=== PATIENT | male | born 1955 | race Caucasian/White ===

== ENCOUNTER 2018-01-06 08:19 | Emergency (ER) | payer OTHER ==
[2018-01-06 08:34] VITALS: BP 147/78
[2018-01-06] MEDS ORDERED: Tetan/Diph/Pertus SYR(Tdap)* 0.5 ML SYR(BOOSTRIX) use SYR IM ONE (08:51)
--- NOTE | 2018-01-06 08:51 | UC ---
Laceration HPI - HPI Summary HPI Summary: 62 yo gentleman presents with L middle finger (ulnar) avulsion lac. 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 Bleeding controlled with pressure, not actively bleeding at examination. No p/d/w. Last tet booster many years ago, date unk. Reports general condition as healthy. - History Of Current Complaint Chief Complaint: UCLaceration Stated Complaint: FINGER LAC Hx Obtained From: Patient Pain Intensity: 3 - Allergies/Home Medications Allergies/Adverse Reactions: Allergies Allergy/AdvReac Type Severity Reaction Status Date / Time No Known Allergies Allergy Verified 01/06/18 08:34 Home Medications: Home Medications Chlorhexidine MOUTHWASH 0.12%* [Peridex Mouth Wash 0.12%*] 473 ml .SEE ORDER BID 01/06/18 [History Confirmed 01/06/18] PMH/Surg Hx/FS Hx/Imm Hx Previously Healthy: Yes - Surgical History Surgical History: Yes Surgery Procedure, Year, and Place: TONSILLECTOMY, PARTIAL RIGHT LUNG REMOVED, SALIVARY GLAND REMOVED, ORAL SURGERIES. carpal tunnel - Family History Known Family History: Negative: Respiratory Disease - Social History Alcohol Use: Rare Substance Use Type: Marijuana Substance Use Comment - Amount & Last Used: rarely Smoking Status (MU): Former Smoker When Did the Patient Quit Smoking/Using Tobacco: 20 yrs - Immunization History Most Recent Tetanus Shot: unknown Review of Systems Constitutional: Negative Skin: Other - see hpi Eyes: Negative ENT: Negative Respiratory: Negative Cardiovascular: Negative Gastrointestinal: Negative Genitourinary: Negative Motor: Negative, Other - see hpi Neurovascular: Negative Musculoskeletal: Negative Neurological: Negative Psychological: Negative Is Patient Immunocompromised?: No All Other Systems Reviewed And Are Negative: Yes Physical Exam Triage Information Reviewed: Yes Appearance: Well-Appearing, Well-Nourished Vital Signs: Initial Vital Signs Temp 98.5 F 01/06/18 08:28 Pulse 81 01/06/18 08:28 Resp 16 01/06/18 08:28 BP 147/78 01/06/18 08:28 Pulse Ox 97 01/06/18 08:28 Vital Signs Reviewed: Yes Eye Exam: Normal ENT Exam: Normal Neck exam: Normal Respiratory Exam: Normal Cardiovascular Exam: Normal Abdominal Exam: Normal Musculoskeletal Exam: Normal - see "skin" re finger lac 3rd digit LH Neurological Exam: Normal - grossly nonfocal. Distal sens present LT Psychological Exam: Normal - conversing easily and appropropriately Skin Exam: Other - Left distal 3rd digit avulsion lac appro 2cm x 1.2cm. + full thickness. A little dusky at convergence, d/w pt. Laceration Repair - Laceration Repair 1 Description: Irregular - avulsion full thickness Laceration Size After Repair: Length (cm) - 2cm, Width (mm) - 1.2cm, Depth (mm) - 3 Modified For Repair: No Type Injection: Digital Anesthesia Used: 2.0% Lido Cleansing Completed Via Routine Prep: Yes Irrigation With Pressure Irrigation Device: No Closure Material: Sutures - six single interrupted Closure Method: Single Layer Suture Of: SQ Suture Type: Prolene Laceration Course/Dx - Course/Dx Course Of Treatment: Reviewed f/u and wound care. Questions as posed answered to the best of my ability. - Differential Dx - Laceration/Wound Provider Diagnoses: Left distal 3rd finger avulsion laceration Discharge - Sign-Out/Discharge Documenting (check all that apply): Patient Departure All imaging exams completed and their final reports reviewed: No Studies - Discharge Plan Condition: Stable Disposition: HOME Prescriptions: Cephalexin CAP* [Keflex 500 CAP*] 500 mg PO TID #15 cap Patient Education Materials: Diphtheria/Acellular Pertussis/Tetanus Booster Vaccine (By injection), Finger Laceration (ED) Forms: *Work Release Referrals: Mauricio Perera MD [Primary Care Provider] - Additional Instructions: Recheck 2 days wound check. Ok to change dressing once daily. Twice if soiled / soaked. Avoid prolonged downward position. Ok to shower tomorrow, mild white soap / water. Do no soak in standing water. Thin layer antibiotic (polysporin) ointment, guaze. Not water tight, not air tight. Suture removal approx 10 days. Seek medical attention for any problems. Eat yogurt and / or probiotic every day while taking antibiotic. - Billing Disposition and Condition Condition: STABLE Disposition: Home
[2018-01-06] MEDS ORDERED: Lidocaine 2% PF * 5 ML VIAL IV ONE (09:31)
== END 2018-01-06 10:43 | disposition home or self-care (01) ==
LOC: UCEAST 08:19
DX: S61.213A Laceration without foreign body of left middle finger without damage to nail, initial encounter (principal); W26.8XXA Contact with other sharp object(s), not elsewhere classified, initial encounter; Y92.9 Unspecified place or not applicable; Z23 Encounter for immunization; Z87.891 Personal history of nicotine dependence
CPT/HCPCS: 12001; 12031; 12041; 90471; 90715; 99212; G0463

== ENCOUNTER 2018-01-16 15:11 | Emergency (ER) | payer OTHER ==
[2018-01-16 15:45] VITALS: BP 143/81
--- NOTE | 2018-01-16 17:04 | UC ---
Laceration HPI - HPI Summary HPI Summary: 62 YO MALE Patient here for suture removal from a laceration of the current 10 days ago on the left middle finger. Overall it's healing well. He finished his prophylactic antibiotics and has been using topical antibiotic ointment. No complaint of any numbness or weakness OR drainage. - History Of Current Complaint Chief Complaint: UCSkin Stated Complaint: SUTURE REMOVAL Time Seen by Provider: 01/16/18 16:53 Pain Intensity: 0 - Allergies/Home Medications Allergies/Adverse Reactions: Allergies Allergy/AdvReac Type Severity Reaction Status Date / Time No Known Allergies Allergy Verified 01/16/18 15:45 PMH/Surg Hx/FS Hx/Imm Hx Endocrine History: Hypothyroidism - Surgical History Surgical History: Yes Surgery Procedure, Year, and Place: TONSILLECTOMY, PARTIAL RIGHT LUNG REMOVED, SALIVARY GLAND REMOVED, ORAL SURGERIES. carpal tunnel - Family History Known Family History: Negative: Respiratory Disease - Social History Alcohol Use: Rare Substance Use Type: Marijuana Substance Use Comment - Amount & Last Used: rarely Smoking Status (MU): Former Smoker When Did the Patient Quit Smoking/Using Tobacco: 20 yrs - Immunization History Most Recent Tetanus Shot: unknown Review of Systems Constitutional: Negative Skin: Other - SEE HPI Eyes: Negative ENT: Negative Respiratory: Negative Cardiovascular: Negative Gastrointestinal: Negative Motor: Negative Neurovascular: Negative Musculoskeletal: Other: - SEE HPI Neurological: Negative Psychological: Negative Is Patient Immunocompromised?: No All Other Systems Reviewed And Are Negative: Yes Physical Exam Triage Information Reviewed: Yes Appearance: Well-Appearing, No Pain Distress, Well-Nourished Vital Signs: Initial Vital Signs Temp 98.6 F 01/16/18 15:40 Pulse 101 01/16/18 15:40 Resp 18 01/16/18 15:40 BP 143/81 01/16/18 15:40 Pulse Ox 98 01/16/18 15:40 Vital Signs Reviewed: Yes Eye Exam: Normal Eyes: Positive: Conjunctiva Clear Respiratory: Positive: No respiratory distress Musculoskeletal Exam: Normal Musculoskeletal: Positive: Strength Intact, ROM Intact Neurological Exam: Normal Neurological: Positive: Alert, Muscle Tone Normal Psychological Exam: Normal Psychological: Positive: Age Appropriate Behavior Skin: Positive: Other - Left middle finger has a healing U-shaped flap laceration on the ulnar aspect with 6 individual sutures. There is minimal erythema no drainage no streaking full range of motion no sensation deficit normal capillary refill. Laceration Course/Dx - Course/Dx Course Of Treatment: I removed 6 sutures from the left index finger. - Differential Dx - Laceration/Wound Provider Diagnoses: SUTURE REMOVAL LEFT INDEX FINGER Discharge - Sign-Out/Discharge Documenting (check all that apply): Patient Departure All imaging exams completed and their final reports reviewed: No Studies - Discharge Plan Condition: Stable Disposition: HOME Patient Education Materials: Stitches Removal (ED) Referrals: Mauricio Perera MD [Primary Care Provider] - Additional Instructions: FOLLOW UP WITH YOUR DOCTOR IF NOT COMPLETELY IMPROVED. GET RECHECKED FOR ANY WORSENING OF YOUR CONDITION OR QUESTIONS OR CONCERNS. - Billing Disposition and Condition Condition: STABLE Disposition: Home
== END 2018-01-16 17:12 | disposition home or self-care (01) ==
LOC: UCEAST 15:11
DX: S61.213D Laceration without foreign body of left middle finger without damage to nail, subsequent encounter (principal); Z87.891 Personal history of nicotine dependence; X58.XXXD Exposure to other specified factors, subsequent encounter

== ENCOUNTER 2018-09-14 14:04 | Emergency (ER) | payer OTHER ==
[2018-09-14 14:25] VITALS: BP 137/88
--- NOTE | 2018-09-14 14:51 | UC ---
Skin Complaint HPI - HPI Summary HPI Summary: 62 yo male presents with right leg rash and swelling since yesterday. He tells me that he wears compression stockings and last night he noticed redness to his right calf. Today the redness has spread to his entire right lower leg and he has developed swelling. He has no pain. Has not taken anything OTC for his symptoms. Has not elevated or iced. He denies fever, chills, recent travel, SOB , chest pain, or hx of blood clots. - History of Current Complaint Chief Complaint: UCLowerExtremity Time Seen by Provider: 09/14/18 14:51 Stated Complaint: RASH ON LEG Hx Obtained From: Patient Onset/Duration: Sudden Onset Current Severity: None Pain Intensity: 0 - Allergy/Home Medications Allergies/Adverse Reactions: Allergies Allergy/AdvReac Type Severity Reaction Status Date / Time No Known Allergies Allergy Verified 09/14/18 14:25 PMH/Surg Hx/FS Hx/Imm Hx Endocrine History: Hypothyroidism Respiratory History: Asthma - Surgical History Surgical History: Yes Surgery Procedure, Year, and Place: TONSILLECTOMY, PARTIAL RIGHT LUNG REMOVED, SALIVARY GLAND REMOVED, ORAL SURGERIES. carpal tunnel - Family History Known Family History: Positive: None Negative: Respiratory Disease - Social History Lives: With Family Alcohol Use: Rare Substance Use Type: Marijuana Substance Use Comment - Amount & Last Used: rarely Smoking Status (MU): Former Smoker When Did the Patient Quit Smoking/Using Tobacco: 20 yrs - Immunization History Most Recent Tetanus Shot: unknown Review of Systems All Other Systems Reviewed And Are Negative: Yes Constitutional: Positive: Negative Skin: Positive: Other - redness and swelling RLE Respiratory: Positive: Negative Cardiovascular: Positive: Negative Musculoskeletal: Positive: Negative Neurological: Positive: Negative Psychological: Positive: Negative Physical Exam - Summary Physical Exam Summary: GENERAL: NAD. WDWN. No pain distress. SKIN: RIGHT LOWER EXTREMITY: Mild erythema, warmth, and edema from the posterior proximal calf to the ankle. Scattered varicose veins. NTTP. No streaking, bleeding, or drainage. NECK: Supple. Nontender. No lymphadenopathy. CHEST: No accessory muscle use. Breathing comfortably and in no distress. CV: Pulses intact popliteal, PT, and DP. Cap refill <2seconds MSK: FROM at right knee and ankle without pain or difficulty. Negative homans. NEURO: Alert. PSYCH: Age appropriate behavior. Triage Information Reviewed: Yes Vital Signs: Initial Vital Signs Temp 99.8 F 09/14/18 14:22 Pulse 96 09/14/18 14:22 Resp 16 09/14/18 14:22 BP 137/88 09/14/18 14:22 Pulse Ox 98 09/14/18 14:22 Vital Signs Reviewed: Yes Course/Dx - Course Course Of Treatment: Given his varicose veins and onset of symptoms - suspect DVT vs cellulitis. US: IMPRESSION: NO RIGHT LOWER EXTREMITY DEEP VEIN THROMBOSIS Will treat as cellulitis with keflex. Advised to elevate his leg and to not use the compression stockings for 2-3 days until this has improved. Advised to f/u with PCP on Tuesday for a recheck or sooner if symptoms worsen. - Diagnoses Provider Diagnosis: Cellulitis of right leg Discharge - Sign-Out/Discharge Documenting (check all that apply): Patient Departure All imaging exams completed and their final reports reviewed: Yes - Discharge Plan Condition: Stable Disposition: HOME Prescriptions: Cephalexin CAP* [Keflex CAP*] 500 mg PO TID #21 cap Patient Education Materials: Cellulitis (ED) Referrals: Mauricio Perera MD [Primary Care Provider] - 1 Week Additional Instructions: If you develop a fever, shortness of breath, chest pain, new or worsening symptoms - please call your PCP or go to the ED immediately. Your blood pressure was high at todays visit. Please see your primary provider within 4 weeks for recheck and re-evaluation. 1) I recommend that you follow up with your primary doctor on Tuesday for a recheck of your leg to make sure that it is healing well - Billing Disposition and Condition Condition: STABLE Disposition: Home
[2018-09-14 20:10] LABS: HIV 4th Generation Negative (Negative)
[2018-09-14 20:16] LABS: Hepatitis C Antibody Negative (Negative)
--- NOTE | 2018-09-15 07:14 | UC ---
- Progress Note Progress Note: neg hiv, neg hep c antibody no change jayesh 09/15 Course/Dx - Diagnoses Provider Diagnoses: Cellulitis of right leg Discharge - Sign-Out/Discharge Documenting (check all that apply): Post-Discharge Follow Up All imaging exams completed and their final reports reviewed: Yes - Discharge Plan Condition: Stable Disposition: HOME Prescriptions: Cephalexin CAP* [Keflex CAP*] 500 mg PO TID #21 cap Patient Education Materials: Cellulitis (ED) Referrals: Mauricio Perera MD [Primary Care Provider] - 1 Week Additional Instructions: If you develop a fever, shortness of breath, chest pain, new or worsening symptoms - please call your PCP or go to the ED immediately. Your blood pressure was high at todays visit. Please see your primary provider within 4 weeks for recheck and re-evaluation. 1) I recommend that you follow up with your primary doctor on Tuesday for a recheck of your leg to make sure that it is healing well - Billing Disposition and Condition Condition: STABLE Disposition: Home
== END 2018-09-14 16:03 | disposition home or self-care (01) ==
LOC: UCEAST 14:04
DX: L03.115 Cellulitis of right lower limb (principal); Z87.891 Personal history of nicotine dependence
CPT/HCPCS: 36415; 86803; 87389; 99212; G0463